=== PATIENT | male | born 1960 | race Two or more races ===

== ENCOUNTER 2016-10-15 19:04 | Emergency (ER) | payer MEDICAID ==
[~2016-10-15] VITALS: Ht 167.6 cm; Wt 65.9 kg
[2016-10-15] MEDS ORDERED: OMNIPAQUE 350 MG/ML, 100ML BOTTLE ONE (19:31)
[2016-10-15 19:32] LABS: HEMATOCRIT 45.4 % (39.2-51.8); HEMOGLOBIN 15.3 g/dL (13.7-18.0); WHITE BLOOD COUNT 9.3 x10^3/uL (3.4-10)
[2016-10-15] MEDS ORDERED: ALTEPLASE 1 MG/ML ONE (19:34)
[2016-10-15] MEDS ORDERED: OMEP-110 PO (19:55)
[2016-10-15] MEDS ORDERED: MELO7.5T31 PO (19:55)
[2016-10-15 19:59] VITALS: BP 136/91
[2016-10-15] MEDS ORDERED: PLEASE ENTER ALLERGIES MC SCH ×2 (20:00)
[2016-10-15] MEDS ORDERED: PLEASE ENTER HEIGHT AND WEIGHT MC SCH (20:00)
[2016-10-15] MEDS ORDERED: ALTEPLASE 6 MG in SYRINGE 1 EA IV ONE (20:00)
[2016-10-15] MEDS ORDERED: ALTEPLASE 0 MG in BAG 1 EACH IV ONE (20:00)
[2016-10-15] MEDS ORDERED: ALTEPLASE 0 MG in SYRINGE 1 EA IV ONE (20:30)
[2016-10-15] MEDS ORDERED: ALTEPLASE IV ONE ×2 (20:30)
== END 2016-10-15 20:33 | disposition short-term general hospital (02) ==
LOC: ED 20:20
DX: I63.511 Cerebral infarction due to unspecified occlusion or stenosis of right middle cerebral artery (principal)
CPT/HCPCS: 36415; 70450; 70496; 70498; 80047; 85025; 85610; 85730; 93005; 99291; Q9967